=== PATIENT | female | born 1995 | race Caucasian/White ===

== ENCOUNTER 2021-12-01 18:07 | Day surgery (SDC) | payer OTHER ==
[2021-12-01] MEDS ORDERED: hydrALAZINE 20 MG/ML VIAL SLOW IVP PRN (18:30)
[2021-12-01 18:33] VITALS: BMI 27.4
[2021-12-01 19:27] LABS: Fetal Membranes Rupture No Membranes Rupture (No Rupture)
[2021-12-01 20:26] LABS: Amphetamine Not Detected (NotDetected); Barbiturates Screen Not Detected (NotDetected); Benzodiazepine Screen Not Detected (NotDetected); Cocaine Metabolite Screen Not Detected (NotDetected); Methadone Not Detected (NotDetected); Methamphetamine Not Detected (NotDetected); Opiate Screen Not Detected (NotDetected); Oxycodone Screen Not Detected (NotDetected); Phencyclidine (PCP) Not Detected (NotDetected); THC/Cannabinoid Screen Not Detected (NotDetected); Tricyclic Screen Not Detected (NotDetected)
== END 2021-12-01 21:10 | disposition home or self-care (01) ==
LOC: CSHLD/OP 18:07 → CSHLD 18:21 → UNDOADMIN 18:21 → UNDODISIN 21:10 → CSHLD/OP 21:10
PROVIDERS: ATTEND Obstetrics & Gynecology
DX: O99.891 Other specified diseases and conditions complicating pregnancy (principal); N89.8 Other specified noninflammatory disorders of vagina; O47.1 False labor at or after 37 completed weeks of gestation; O36.8130 Decreased fetal movements, third trimester, not applicable or unspecified; O09.33 Supervision of pregnancy with insufficient antenatal care, third trimester; O34.211 Maternal care for low transverse scar from previous cesarean delivery; O10.013 Pre-existing essential hypertension complicating pregnancy, third trimester; Z3A.37 37 weeks gestation of pregnancy; Z91.040 Latex allergy status
CPT/HCPCS: 76815; 76819; 80306; 84112; 87480; 87510; 87660